=== PATIENT | female | born 1990 | race Two or more races ===

== ENCOUNTER 2025-01-23 09:01 | Emergency (ER) | payer MEDICAID, SELFPAY ==
[2025-01-23 09:02] VITALS: BMI 24.0
[2025-01-23 09:08] VITALS: BP 118/75; PULSE 71; RESP 18; TEMP 36.7; O2SAT 99
--- NOTE | 2025-01-23 09:29 | XR_ITS ---
Examination: Complete OB ultrasound, less than 14 weeks, transabdominal Date and time of exam: January 23, 2025, 10 0 4:00 a.m. INDICATIONS: Onset heavy vaginal bleeding beginning 2 days ago Technique: Obstetrical ultrasound images less than 14 weeks performed via transabdominal imaging Findings: Uterus 9.5 cm endometrial stripe 1.0 cm No uterine mass or intrauterine gestation Right ovary 4.1 cm arterial flow small follicles, the largest 12 mm Left ovary 3.2 cm arterial flow, small follicles, the largest 16 mm IMPRESSION: No uterine mass or intrauterine gestation.
--- NOTE | 2025-01-23 09:36 | PD.EDRME ---
Rapid Medical Screening Exam RME Arrival date/time: 01/23/25 09:01 This is a 34-year-old female that comes into the emergency room with complaints of vaginal bleeding. Patient states she is a 5 para 3. Patient states she has had 1 miscarriage. Patient states her last menstrual period was December 12. She reports she is approximately 5 weeks . I have greeted and performed a focused initial assessment of this patient. Initial appropriate labs ordered at this time. A comprehensive ED assessment and evaluation of the patient and analysis of all test and completion of medical decision making process will be conducted by additional ED provider. Chief Complaint: Abdominal Pain Time Seen by Provider: 01/23/25 09:03 Vital signs: Vital Signs Temperature 98.1 F 01/23/25 09:08 Pulse Rate 71 01/23/25 09:08 Respiratory Rate 18 01/23/25 09:08 Blood Pressure 118/75 01/23/25 09:08 Pulse Oximetry (%) 99 01/23/25 09:08 Oxygen Delivery Method Room Air 01/23/25 09:08 Exam: Breathing even and unlabored. Diffuse abdominal pain more so to the right lower quadrant right pelvic area. Clinical Impression: Possible miscarriage
[2025-01-23 10:14] LABS: Collection Type, Urine Voided; Squamous Epithelial Cell,Urine 0 /hpf (0-5)
[2025-01-23 10:20] LABS: Basophils # (Auto) 0.1 Thou/mm3 (0.0-0.2); Basophils % (Auto) 1 % (0-2.5); Eosinophils # (Auto) 0.1 Thou/mm3 (0.0-0.5); Eosinophils % (Auto) 1 % (0-10); Hematocrit 39.2 % (36.0-46.0); Hemoglobin 13.0 g/dL (12.0-16.0); Immature Granulocytes Auto 0.02 Thou/mm3 (0.00-0.00); Lymphocytes # (Auto) 1.5 Thou/mm3 (1.0-4.8); Lymphocytes % (Auto) 23 % (10-50); Mean Corpuscular HGB Conc 33.2 g/dl (31.0-37.0); Mean Corpuscular Hemoglobin 29.9 pg (25.0-35.0); Mean Corpuscular Volume 90 fL (80-100); Monocytes # (Auto) 0.4 Thou/mm3 (0.0-0.8); Monocytes % (Auto) 6 % (0-12); Neutrophils # (Auto) 4.5 Thou/mm3 (1.8-7.7); Neutrophils % (Auto) 69 % (37-80); Nucleated Red Blood Cell # 0.00 Thou/mm3 (0.00-0.00); Nucleated Red Blood Cell % 0 /100 WBC (0); Platelet Count 169 Thou/mm3 (140-440); RDW Standard Deviation 42.5 fL (36.4-46.3); Red Blood Count 4.35 Miln/mm3 (4.00-5.20); White Blood Count 6.5 Thou/mm3 (3.6-11.0)
[2025-01-23 10:42] LABS: Albumin, Serum 4.8 gm/dL (3.5-5.0); Albumin/Globulin Ratio 2.0 (1.2-2.2); Alkaline Phosphatase 48 U/L (46-116); Anion Gap 10 (7-16); Aspartate Amino Transferase 19 U/L (0-34); BUN/Creatinine Ratio 11 Ratio (12-20); Beta HCG,Quantitative 14 mIU/mL (<5.0); Bilirubin,Total 0.5 mg/dL (0.3-1.2); Blood Urea Nitrogen 9 mg/dL (9-23); Calcium 9.3 mg/dL (8.3-10.6); Calcium (Corrected) 9.3 mg/dL (8.5-10.1); Carbon Dioxide 25.5 mMol/L (20.0-31.0); Chloride 107 mMol/L (98-107); Creatinine (Component) 0.8 mg/dL (0.6-1.3); Estimated Creatinine Clearance 81.7 mL/min (>60); Globulin 2.4 gm/dL (2.3-3.5); Glucose 96 mg/dL (74-106); Lipase 37 U/L (12-53); Osmolality,Calculated 281 (275-295); Potassium 3.9 mMol/L (3.4-5.1); Sodium 142 mMol/L (136-145); Total Protein 7.2 gm/dL (5.7-8.2); eGFR > 60 See Note
[2025-01-23 10:50] LABS: Bilirubin,Urine Negative (Negative); Blood,Urine 3+ (Negative); Clarity,Urine Clear (Clear/Hazy); Color,Urine Colorless (Lt Yel-Yel); Culture Indicated,Urine Not Indicated; Glucose, Urine Negative (Negative); Ketones,Urine Negative (Negative); Leukocyte Esterase,Urine Negative (Negative); Nitrite,Urine Negative (Negative); PH,Urine 6.5 (5.0-7.0); Protein,Urine Negative (Neg - Trace); RBC,Urine 2 /hpf (0-3); Specific Gravity,Urine 1.007 (1.001-1.035); Urobilinogen,Urine Negative mg/dL (0.0-1.0); WBC,Urine < 1 /hpf (0-5)
[2025-01-23 10:53] LABS: Alanine Aminotransferase 7 U/L (10-49)
--- NOTE | 2025-01-23 11:23 | EDNOTE_ITS ---
<Statement entered by Linda Jewell MD - 01/23/25 14:45> As co-signing physician, I was present and available for consult prn. I concur with the plan and care as documented by the midlevel provider. ED Abdominal Pain RME/HPI General Chief Complaint: Abdominal Pain Stated complaint: RLQ ABD PAIN & VAG. BLEEDING; 5 WEEKS OB Time seen by provider: 01/23/25 09:03 Arrival date/time: 01/23/25 09:01 34-year-old female patient was brought in by family for evaluation regarding vaginal bleeding. Patient is 4 para 3 about 5 weeks , came in for vaginal bleeding for 2 days, today patient changed at least 2 pads. Also complained of pelvic discomfort. Denies any dizziness. Denies any other complaints no checkup done yet. RME / HPI RME / HPI narrative: 01/23/25 09:01 This is a 34-year-old female that comes into the emergency room with complaints of vaginal bleeding. Patient states she is a 5 para 3. Patient states she has had 1 miscarriage. Patient states her last menstrual period was December 12. She reports she is approximately 5 weeks . I have greeted and performed a focused initial assessment of this patient. Initial appropriate labs ordered at this time. A comprehensive ED assessment and evaluation of the patient and analysis of all test and completion of medical decision making process will be conducted by additional ED provider. Exam: Breathing even and unlabored. Diffuse abdominal pain more so to the right lower quadrant right pelvic area. Impression: Possible miscarriage Related Data Previous Rx's ?Medication ?Instructions ?Recorded docusate sodium 100 mg capsule 100 mg PO QDAY constipa ayanna #10 caps 07/18/18 hydrocodone 5 mg-acetaminophen 300 1 tab PO Q6H PRN pa in #10 tabs 07/18/18 mg tablet (Vicodin) ibuprofen 600 mg tablet 600 mg PO TID PRN pain #20 t abs 07/18/18 Allergies Allergy/AdvReac Type Severity Reaction Status Date / Time No Known Allergies Allergy Verified 01/23/25 09:05 Review of Systems Review of Systems Narrative Review of Systems: Review of system reviewed and within normal limits except mentioned in HPI ED Exam Narrative Physical exam: VITAL SIGNS: Reviewed. GENERAL APPEARANCE: Alert and interactive, follows commands, no acute distress, HEAD AND FACE: Non-traumatic. ENT: PERRL, pink conjunctivitis, eyelid no trauma, Mucous membrane moist. NECK: Supple, nontender, no nuchal rigidity. CHEST: No tenderness, no crepitus, no paradoxical movement, no retractions. LUNGS: Clear, well ventilated, symmetric, no rales, no wheezing, no ronchi, no stridor, good breath sounds bilaterally. HEART: Regular rate, regular rhythm, no murmur, no gallops. ABDOMEN: Soft, positive bowel sounds, nondistended, no guarding, nontender, no rebound, no masses, RECTAL: Deferred. GENITAL: Deferred. NEUROLOGICAL: Gross motor function intact sensory function intact, Appropriate for age. MUSCULOSKELETAL: low back nontender, full range of motion. EXTREMITIES: Nontender, full range of motion. SKIN: Color pink, dry, no rash, no lacerations, no abrasions, no contusions. LYMPHATICS: Deferred. Course Quality Measures none Orders Category Date Time Status US OB <= 14 weeks fetus Stat Exams 01/23/25 09:29 Completed ABO/RH Type - Stat Lab 01/23/25 10:01 Received Beta HCG,Quantitative Stat Lab 01/23/25 10:01 Completed CBC Stat Lab 01/23/25 10:01 Completed Comprehensive Metabolic Panel Stat Lab 01/23/25 10:01 Completed Lipase Stat Lab 01/23/25 10:01 Completed Urinalysis, C/S if Indicated Stat Lab 01/23/25 10:00 Completed Vital Signs Vital signs: Vital Signs Temperature 98.1 F 01/23/25 09:08 Pulse Rate 71 01/23/25 09:08 Respiratory Rate 18 01/23/25 09:08 Blood Pressure 118/75 01/23/25 09:08 Pulse Oximetry (%) 99 01/23/25 09:08 Oxygen Delivery Method Room Air 01/23/25 09:08 Abdominal Pain MDM MDM Narrative MDM Narrative:: 34-year-old female patient was brought in by family for evaluation regarding vaginal bleeding. Patient is 4 para 3 about 5 weeks , came in for vaginal bleeding for 2 days, today patient changed at least 2 pads. Also complained of pelvic discomfort. Denies any dizziness. Denies any other complaints no checkup done yet. Patient's workup today is significant for very low hCG number, only 14. The rest of the labs unremarkable urinalysis no UTI. ultrasound came back with no abnormality noted no IUP seen no abnormality noted. Results discussed with the patient. Patient was advised to return to the emergency room in 3 days for repeat hCG patient is probably having threatened versus completed . Patient data External records reviewed:: None Clinical information provided by:: patient Social determinants that could affect healthcare access:: none Patient has the following chronic illnesses:: None How is presenting disease/condition affected by chronic disease/condition?: no chronic disease Evaluation data The following diagnostics were reviewed and interpreted by me:: lab results Lab and/or radiology exams considered but not ordered:: None Interpretation Summary: See MDM Medications / Prescriptions Medications or Prescriptions considered but not ordered:: None Medication administrations:: None Consultations Consultation(s) initiated? (list below): No Diagnosis Differential diagnosis abdominal pain: abdominal pain and other (Threatened , completed ) Most likely diagnosis given after review of the tests above:: Threatened Admission Indicated Admission indicated?: not indicated Admission Request Was there a request for admission?: No Disposition Plan Disposition Plan: Discharge Discharge Attestation Discharge Attestation: The patient and all family members were given an opportunity to ask questions and understood the discharge instructions. Discharge instructions specifically effects, indications for sooner follow up or return to the emergency department, and the expected course of current diagnosis. Patient condition: Stable Discharge Plan Plan Patient Disposition: HOME (Self Care) Discharge Disposition comment: stable Prescriptions/Referrals Prescriptions/Med Rec: No Action hydrocodone-acetaminophen [Vicodin] 5-300 mg tablet 1 tab PO Q6H MDD 4 PRN (Reason: pain) Qty: 10 0RF ibuprofen 600 mg tablet 600 mg PO TID MDD 6 PRN (Reason: pain) Qty: 20 0RF docusate sodium 100 mg capsule 100 mg PO QDAY MDD 1 oh Qty: 10 0RF Referrals: Didier Grover MD [Primary Care Provider, Family Practice] - In 1 week Problem List Clinical Impression: Threatened Patient/Caregiver Discharge Instructions Discharge Activity: activity as tolerated Education Materials: ED Possible Miscarriage ... Additional Instructions: Thank you for the opportunity for serving you today. You are stable for discharged . You are advised to: Follow-up with your PCP in 1 to 2 days Return to ED for worsening of symptoms Increase oral fluids Pelvic rest no sex for 1 week or until cleared by [employer]. Return to emergency room in 3 days for repeat hCG Print Language: Congolese Stand Alone Forms: [employer] Info., Patient Portal Info Letter
== END 2025-01-23 11:29 | disposition home or self-care (01) ==
PROVIDERS: Nurse Practitioner Family; Emergency Provider Emergency Medicine; PCP Family Medicine
DX: O03.9 Complete or unspecified spontaneous abortion without complication (principal); Z3A.01 Less than 8 weeks gestation of pregnancy
CPT/HCPCS: 36415; 76801; 80053; 81001; 83690; 84702; 85025; 86900; 86901; 99283